=== PATIENT | male | born 1935 | race Caucasian/White ===

== ENCOUNTER 2016-06-24 13:46 | Emergency (ER) | payer OTHER ==
[~2016-06-24 13:46] MED LIST: ALUMSUS2 PO; BENZ100C18 PO; CLOP1TAB5 PO; DUTA0.5C PO; FERR324T4 PO; FLUT0.15 NAE; HYDR-5688 PO; INSDGIPEN SQ; LPT/40 PO; LSX40 PO; MAGN400T24 PO; MULT-845 PO; ONDA4TAB65 PO; PANT1TAB48 PO; POLY335019 PO; PROB1CAP6 PO; TAMS0.4C59 PO; TPRSR25 PO; VNCS125 PO
[2016-06-24 14:16] VITALS: PULSE 0
--- NOTE | 2016-06-24 16:42 | EMERGENCY ROOM VISIT NOTE ---
History Report prepared by Deonna: Xavier Adams Under the Supervision of: Dr. Gwyn Allan D.O. 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 The patient was choking on chicken. EMS was able to remove the foreign body , after which the patient entered cardiac arrest. CPR was performed continuously on the patient en route. He was also given epinephrine en route. A complete history is limited secondary to cardiac arrest. 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 Past Medical & Surgical Medical Problems: (1) Anemia of chronic disease (2) Mcgregor esophagus (3) BPH (benign prostatic hypertrophy) (4) CAD (coronary artery disease) (5) Calculus of kidney and ureter (6) CKD (chronic kidney disease), stage III (7) Diabetic peripheral neuropathy (8) DM type 2 (diabetes mellitus, type 2) (9) History of atrial fibrillation (10) History of gastric ulcer (11) Hyperlipidemia (12) NSTEMI (non-ST elevated myocardial infarction) (13) Pneumonia (14) Pulmonary hypertension (15) PVD (peripheral vascular disease) (16) Systolic CHF (17) Valvular heart disease Surgical Problems: (1) H/O cataract removal with insertion of prosthetic lens (2) H/O esophagogastroduodenoscopy (3) History of hip surgery (4) S/p amputation of toe (5) S/P CABG x 5 (6) S/P cholecystectomy (7) S/P inguinal hernia repair Family History Diabetes mellitus FH: coronary artery disease FH: myocardial infarction FH: throat cancer Social History Occupation Status: retired Current/Historical Medications Scheduled Atorvastatin (Lipitor), 40 MG PO DAILY Clopidogrel Bisulfate (Plavix), 75 MG PO QAM Dutasteride (Avodart), 0.5 MG PO QAM Ferrous Sulfate (Ferrous Sulfate), 324 MG PO DAILY Furosemide (Furosemide), 40 MG PO QAM Insulin Glargine (Lantus Solostar), 10 UNITS SQ HS Magnesium Oxide (Mag-Oxide), 400 MG PO QAM Metoprolol Succinate (Metoprolol Succinate ER), 12.5 MG PO QAM Multiple Vitamins W/ Minerals (Centrum Silver Adult 50+), 1 TAB PO QAM Pantoprazole (Protonix), 40 MG PO QAM Probiotic Product (Probiotic Acidophilus), 1 CAP PO QAM Tamsulosin Hcl (Flomax), 0.4 MG PO HS Vancomycin HCl (Vancomycin HCl), 125 MG PO QID Scheduled PRN Alum & Mag Hydrox-Simethicone (Maalox Max Susp), 30 ML PO TID PRN for Heartburn Benzonatate (Tessalon Perles), 100 MG PO TID PRN for Cough Fluticasone Propionate (Nasal) (Flonase Allergy Relief), 2 SPRAYS BARRY DAILY PRN for Allergy Symptoms Hydrocodone/Acetaminophen 5MG/325MG ([place] 5MG/325MG), 1 TABLET PO Q6H PRN for Pain Ondansetron Hcl (Zofran), 4 MG PO Q6H PRN for Nausea Polyethylene Glycol 3350 (Miralax), 1 TBS PO DAILY PRN for Constipation Allergies Coded Allergies: Acarbose (Verified Allergy, Unknown, unk, 03/23/16) Glimepiride (Verified Allergy, Unknown, unk, 03/23/16) Aspirin (Verified Adverse Reaction, Severe, nose bleeds and bowel bleeds, 03/23/16) Gabapentin (Verified Adverse Reaction, Mild, DIZZY, 03/23/16) Propoxyphene (Verified Adverse Reaction, Unknown, depression, 03/23/16) Physical Exam Vital Signs Date Time Temp Pulse Resp B/P Pulse Ox O2 Delivery O2 Flow Rate FiO2 06/24/16 14:16 0 0 Physical Exam CONSTITUTIONAL/VITAL SIGNS: Reviewed / noted above. GENERAL: Non-toxic in appearance. INTEGUMENTARY: Warm, dry, and Mikes. HEAD: Normocephalic. EYES: without scleral icterus or trauma. ENT/OROPHARYNX: Endotracheal tube in place. LYMPHADENOPATHY/NECK: Is supple without lymphadenopathy or meningismus. RESPIRATORY: Lungs clear and equal. CARDIOVASCULAR: No spontaneous circulation but positive pulses in the groin with CPR. GI/ABDOMEN: Soft and nontender. No organomegaly or pulsatile mass. No rebound or guarding. Normal bowel sounds. EXTREMITIES: Warm and well perfused. BACK: No CVA tenderness. NEUROLOGICAL: No sign of life. PSYCHIATRIC: normal affect. MUSCULOSKELETAL: Normally developed. Medical Decision & Procedures ED Course 1350: Previous medical records were reviewed. The patient was evaluated in room A1. A complete history and physical examination was performed. 1350: CPR performed during initial resuscitation. 1352: Bedside ultrasound performed. 1353: Time of called. 1413: Spoke with the patient's family. Medical Decision Etiologies such as cardiac ischemia, aortic dissection, pulmonary embolism, electrolyte abnormality, acidosis, tension pneumothorax, hypothermia, hypovolemia, intracranial event, as well as others were entertained. This is an 81-year-old male who presents to the ED after a episode of choking and subsequent cardiac arrest. The patient was reportedly at home eating chicken. He began choking on the chicken. The patient was evaluated by EMS and the chicken was removed but the patient had subsequent cardiac arrest in the interim. The patient was intubated and IVs were established. The patient was treated with ACLS treatment including IV epinephrine, defibrillation as well as sodium bicarbonate. Upon the patient's arrival here, he had been in cardiac arrest for at least 45 minutes with CPR in progress and no response to intervention. CPR continued and the patient's initial evaluation in the emergency department. The patient's initial monitor revealed fine V. fib versus asystole. Ultrasound did not show cardiac activity. Because of the prolonged downtime and no response to intervention, additional resuscitation efforts were felt to be futile. The patient was pronounced . Impression Primary Impression: Cardiac arrest Additional Impression: Choking episode Scribe Attestation The scribe's documentation has been prepared under my direction and personally reviewed by me in its entirety. I confirm that the note above accurately reflects all work, treatment, procedures, and medical decision making performed by me. Departure Information Dispostion Patient Instructions My [facility] Problem Qualifiers
== END 2016-06-24 14:00 | disposition expired ==
LOC: EDBD 13:46 → C.ED 13:49 → C.EDA 14:00
DX: I46.9 Cardiac arrest, cause unspecified (principal); D63.8 Anemia in other chronic diseases classified elsewhere; K22.70 Barrett's esophagus without dysplasia; N40.0 Benign prostatic hyperplasia without lower urinary tract symptoms; I25.10 Atherosclerotic heart disease of native coronary artery without angina pectoris; I50.20 Unspecified systolic (congestive) heart failure; Z87.442 Personal history of urinary calculi; N18.3 Chronic kidney disease, stage 3 (moderate); E11.43 Type 2 diabetes mellitus with diabetic autonomic (poly)neuropathy; I48.91 Unspecified atrial fibrillation; E78.5 Hyperlipidemia, unspecified; I25.2 Old myocardial infarction; Z87.01 Personal history of pneumonia (recurrent); I73.9 Peripheral vascular disease, unspecified; Z89.429 Acquired absence of other toe(s), unspecified side; Z90.49 Acquired absence of other specified parts of digestive tract; Z83.3 Family history of diabetes mellitus; Z82.49 Family history of ischemic heart disease and other diseases of the circulatory system; Z79.01 Long term (current) use of anticoagulants; Z79.899 Other long term (current) drug therapy